=== PATIENT | male | born 1995 | race Caucasian/White ===

== ENCOUNTER 2017-02-01 17:58 | Emergency (ER) | payer SELFPAY ==
[~2017-02-01] VITALS: Ht 162.6 cm; Wt 63.5 kg
[2017-02-01] MEDS ORDERED: IV NORMAL SALINE 1000ML BAG 1,000 ML IV ONE (18:30)
[2017-02-01] MEDS ORDERED: KETOROLAC 30 MG/ML INJ. IV ONE (18:30)
[2017-02-01] MEDS ORDERED: ONDANSETRON PF 4 MG/2 ML VIAL. IV ONE (18:30)
[2017-02-01 18:44] LABS: BASO # 0.1 x10^3/uL (0.0-0.2); BASO % 1 % (0-3); EOS % 1 % (0-3); HEMATOCRIT 45.9 % (39.0-53.0); HEMOGLOBIN 15.1 g/dL (13.0-17.5); LYMPH # 2.2 x10^3/uL (1.0-4.8); LYMPH % 20 % (24-48); MEAN CORPUSCULAR HEMOGLOBIN 29 pg (25-35); MEAN CORPUSCULAR HGB CONC 33 g/dL (31-37); MEAN CORPUSCULAR VOLUME 89 fL (79-100); MONO % 7 % (0-9); NEUT % 72 % (31-73); PLATELET COUNT 230 x10^3/uL (140-400); RED BLOOD COUNT 5.16 x10^6/uL (4.30-5.70); RED CELL DISTRIBUTION WIDTH 13.2 % (11.5-14.5); WHITE BLOOD COUNT 11.5 x10^3/uL (4.0-11.0)
[2017-02-01] MEDS ORDERED: IOHEXOL 300 MG/ML 100ML VIAL. IV ONE (18:45)
[2017-02-01] MEDS ORDERED: CONTRAST GIVEN MC PRN (18:45)
[2017-02-01 18:52] LABS: CALCIUM 8.9 mg/dL (8.5-10.1); GFR 95.3; POTASSIUM 3.5 mmol/L (3.5-5.1)
[2017-02-01 18:58] LABS: ALBUMIN 3.8 g/dL (3.4-5.0); ALBUMIN/GLOBULIN RATIO 1.2 (1.0-1.7); TOTAL BILIRUBIN 0.3 mg/dL (0.2-1.0)
--- NOTE | 2017-02-01 19:25 | RAD ---
Ultrasound testicular 02/01/2017 CLINICAL INDICATION: Bilateral testicular pain. COMPARISON: None. FINDINGS: Right testis is high adjacent echotexture measuring 2.4 x 2.4 x 4.5 cm. There is normal intratesticular blood flow in the right testis. Right epididymis is unremarkable. There is a small left epididymal head cyst measuring 6 mm. Left testis measures 3.7 x 2.1 x 1.8 cm with homogeneous echotexture and normal intratesticular blood flow. IMPRESSION: 1. No evidence of testicular torsion or epididymoorchitis. 2. Small left epididymal head cysts, likely spermatocele. Electronically signed by: Douglas Solitario MD (02/01/2017 7:22 PM) [facility]
[2017-02-01 19:40] VITALS: BP 96/46
--- NOTE | 2017-02-01 19:42 | PHYS DOC ---
Past Medical History Past Medical History: No Pertinent History Past Surgical History: No Surgical History Alcohol Use: Occasionally Drug Use: Marijuana Social History Narrative: last use today Adult General Chief Complaint Chief Complaint: ABDOMINAL PAIN HPI HPI Patient is a 21 year old female presenting to the emergency department for evaluation of left or quadrant abdominal pain that rates towards testicle that started yesterday and has persistently gotten worse. He has had some nausea but no vomiting fevers chills diarrhea constipation dysuria or hematuria. Patient has not taken anything for pain and he is in no obvious distress with normal vital signs. Review of Systems Review of Systems Constitutional: Denies fever or chills [] Respiratory: Denies cough or shortness of breath [] Cardiovascular: No additional information not addressed in HPI [] GI: + abdominal pain, nausea. No vomiting, bloody stools or diarrhea [] : Denies dysuria or hematuria [] All other systems were reviewed and found to be within normal limits, except as documented in this note. Current Medications Current Medications Current Medications Medications (Trade) Dose Ordered Sig/[facility] Start Time Stop Time Status Last Admin Dose Admin Info (Do NOT chart on this entry -- for MONITORING) 1 each PRN DAILY PRN 02/01/17 18:45 02/03/17 18:44 Iohexol (Omnipaque 300 Mg/ml) 75 ml 1X ONCE 02/01/17 18:45 02/01/17 18:46 DC 02/01/17 18:45 75 ML Ketorolac Tromethamine (Toradol) 30 mg 1X ONCE 02/01/17 18:30 02/01/17 18:31 DC 02/01/17 18:54 30 MG Ondansetron HCl (Zofran) 8 mg 1X ONCE 02/01/17 18:30 02/01/17 18:31 DC 02/01/17 18:52 8 MG Sodium Chloride 1,000 ml @ 1,000 mls/hr 1X ONCE 02/01/17 18:30 02/01/17 19:29 DC 02/01/17 18:51 1,000 MLS/HR Allergies Allergies Allergies Coded Allergies Type Severity Reaction Last Updated Verified No Known Drug Allergies 12/21/15 No Physical Exam Physical Exam Constitutional: Well developed, well nourished, no acute distress, non-toxic appearance. [] Cardiovascular:Heart rate regular rhythm, no murmur [] Lungs & Thorax: Bilateral breath sounds clear to auscultation [] Abdomen: Bowel sounds normal, soft, no tenderness, no masses, no pulsatile masses. [] exam showed to normal testicles with no swelling. Current Patient Data Vital Signs Vital Signs Date Time Temp Pulse Resp B/P (MAP) Pulse Ox O2 Delivery O2 Flow Rate FiO2 02/01/17 18:10 98.3 97 16 123/61 (81) 99 Room Air 98.3 Lab Values Laboratory Tests Test 02/01/17 18:35 02/01/17 19:40 White Blood Count 11.5 x10^3/uL (4.0-11.0) H Red Blood Count 5.16 x10^6/uL (4.30-5.70) Hemoglobin 15.1 g/dL (13.0-17.5) Hematocrit 45.9 % (39.0-53.0) Mean Corpuscular Volume 89 fL (79-100) Mean Corpuscular Hemoglobin 29 pg (25-35) Mean Corpuscular Hemoglobin Concent 33 g/dL (31-37) Red Cell Distribution Width 13.2 % (11.5-14.5) Platelet Count 230 x10^3/uL (140-400) Neutrophils (%) (Auto) 72 % (31-73) Lymphocytes (%) (Auto) 20 % (24-48) L Monocytes (%) (Auto) 7 % (0-9) Eosinophils (%) (Auto) 1 % (0-3) Basophils (%) (Auto) 1 % (0-3) Neutrophils # (Auto) 8.3 x10^3uL (1.8-7.7) H Lymphocytes # (Auto) 2.2 x10^3/uL (1.0-4.8) Monocytes # (Auto) 0.8 x10^3/uL (0.0-1.1) Eosinophils # (Auto) 0.1 x10^3/uL (0.0-0.7) Basophils # (Auto) 0.1 x10^3/uL (0.0-0.2) Sodium Level 142 mmol/L (136-145) Potassium Level 3.5 mmol/L (3.5-5.1) Chloride Level 102 mmol/L (98-107) Carbon Dioxide Level 28 mmol/L (21-32) Anion Gap 12 (6-14) Blood Urea Nitrogen 13 mg/dL (8-26) Creatinine 1.0 mg/dL (0.7-1.3) Estimated GFR (Cockcroft-Gault) 95.3 BUN/Creatinine Ratio 13 (6-20) Glucose Level 133 mg/dL (70-99) H Calcium Level 8.9 mg/dL (8.5-10.1) Magnesium Level 2.0 mg/dL (1.8-2.4) Total Bilirubin 0.3 mg/dL (0.2-1.0) Aspartate Amino Transferase (AST) 15 U/L (15-37) Alanine Aminotransferase (ALT) 21 U/L (16-63) Alkaline Phosphatase 102 U/L (46-116) Total Protein 7.0 g/dL (6.4-8.2) Albumin 3.8 g/dL (3.4-5.0) Albumin/Globulin Ratio 1.2 (1.0-1.7) Lipase 87 U/L (73-393) Urine Color Yellow Urine Clarity Cloudy Urine pH 6.5 Urine Specific [place] 1.025 Urine Protein Negative mg/dL (NEG-TRACE) Urine Glucose (UA) Negative mg/dL (NEG) Urine Ketones (Stick) Negative mg/dL (NEG) Urine Blood Large (NEG) Urine Nitrite Negative (NEG) Urine Bilirubin Negative (NEG) Urine Urobilinogen Dipstick 1.0 mg/dL (0.2 mg/dL) Urine Leukocyte Esterase Negative (NEG) Urine RBC Tntc /HPF (0-2) Urine WBC Occ /HPF (0-4) Urine Squamous Epithelial Cells Occ /LPF Urine Bacteria 0 /HPF (0-FEW) Urine Mucus Slight /LPF Laboratory Tests 02/01/17 18:35 Laboratory Tests 02/01/17 18:35 EKG EKG [] Radiology/Procedures Radiology/Procedures Ultrasound testicular 02/01/2017 CLINICAL INDICATION: Bilateral testicular pain. COMPARISON: None. FINDINGS: Right testis is high adjacent echotexture measuring 2.4 x 2.4 x 4.5 cm. There is normal intratesticular blood flow in the right testis. Right epididymis is unremarkable. There is a small left epididymal head cyst measuring 6 mm. Left testis measures 3.7 x 2.1 x 1.8 cm with homogeneous echotexture and normal intratesticular blood flow. IMPRESSION: 1. No evidence of testicular torsion or epididymoorchitis. 2. Small left epididymal head cysts, likely spermatocele. Electronically signed by: Vinay Solitario MD (02/01/2017 7:22 PM) [facility] DICTATED and SIGNED BY: VINAY SOLITARIO MD DATE: 02/01/171919 CT abdomen and pelvis 02/01/2017 CLINICAL INDICATION: Low abdominal and scrotal pain. COMPARISON: None. TECHNIQUE: Multiple CT images of the abdomen and pelvis were obtained following the intravenous administration of 75 mL Omnipaque 300. *One or more of the following individualized dose reduction techniques were utilized for this examination: 1. Automated exposure control. 2. Adjustment of the mA and/or kV according to patient size. 3. Use of iterative reconstruction technique. FINDINGS: Heart size is normal. Visualized lung bases are clear. Liver, gallbladder, spleen, adrenal glands, pancreas are unremarkable. There is a solitary 4 mm nonobstructive calculus in the interpolar right kidney and a solitary 4 mm nonobstructing calculus in the inferior pole the left kidney. Abdominal aorta is normal in caliber. Major portal, splenic and visualized. Mesenteric veins are patent. No bowel obstruction. Appendix is not clearly identified due to lack of intraperitoneal fat, with no secondary findings of appendicitis. No pneumoperitoneum. No abdominal free fluid. Urinary bladder unremarkable. Prostate and seminal vesicles are present. No pelvic free fluid. There are no destructive osseous lesions. At L5-S1, central disc protrusion without significant spinal canal or neural foraminal narrowing. IMPRESSION: 1. Single bilateral 4 mm nonobstructive nephrolithiasis. 2. Otherwise, no acute abdominal or pelvic process. Electronically signed by: Vinay Solitario MD (02/01/2017 7:43 PM) [facility] DICTATED and SIGNED BY: VINAY SOLITARIO MD DATE: 02/01/171937 Course & Med Decision Making Course & Med Decision Making Patient says his pain went away all of a sudden and based off the large amount of blood in his urine he likely has a past kidney stone. Patient says he is feeling back to normal and wants to go home so he will be discharged in stable condition told to drink plenty of fluids take ibuprofen for pain and come back to the ED sooner with any worsening pain fevers vomiting or other general concerns. Patient aware and agreeable with plan and verbalized understanding of the above instructions. Dragon Disclaimer Dragon Disclaimer This electronic medical record was generated, in whole or in part, using a voice recognition dictation system. Departure Departure Impression: Primary Impression: Abdominal pain Additional Impression: Hematuria Disposition: 01 HOME, SELF-CARE Condition: STABLE Referrals: NO PCP (PCP) Patient Instructions: Abdominal Pain Problem Qualifiers Primary Impression: Abdominal pain Abdominal location: left lower quadrant Qualified Codes: R10.32 - Left lower quadrant pain MARTIN CASTELLANOS DO Feb 01, 2017 19:42
--- NOTE | 2017-02-01 19:47 | RAD ---
CT abdomen and pelvis 02/01/2017 CLINICAL INDICATION: Low abdominal and scrotal pain. COMPARISON: None. TECHNIQUE: Multiple CT images of the abdomen and pelvis were obtained following the intravenous administration of 75 mL Omnipaque 300. *One or more of the following individualized dose reduction techniques were utilized for this examination: 1. Automated exposure control. 2. Adjustment of the mA and/or kV according to patient size. 3. Use of iterative reconstruction technique. FINDINGS: Heart size is normal. Visualized lung bases are clear. Liver, gallbladder, spleen, adrenal glands, pancreas are unremarkable. There is a solitary 4 mm nonobstructive calculus in the interpolar right kidney and a solitary 4 mm nonobstructing calculus in the inferior pole the left kidney. Abdominal aorta is normal in caliber. Major portal, splenic and visualized. Mesenteric veins are patent. No bowel obstruction. Appendix is not clearly identified due to lack of intraperitoneal fat, with no secondary findings of appendicitis. No pneumoperitoneum. No abdominal free fluid. Urinary bladder unremarkable. Prostate and seminal vesicles are present. No pelvic free fluid. There are no destructive osseous lesions. At L5-S1, central disc protrusion without significant spinal canal or neural foraminal narrowing. IMPRESSION: 1. Single bilateral 4 mm nonobstructive nephrolithiasis. 2. Otherwise, no acute abdominal or pelvic process. Electronically signed by: Douglas Solitario MD (02/01/2017 7:43 PM) [facility]
[2017-02-01 19:48] LABS: BILIRUBIN,URINE NEGATIVE (NEG); GLUCOSE,URINE NEGATIVE (NEG); NITRITE,URINE NEGATIVE (NEG); PH,URINE 6.5; PROTEIN,URINE NEGATIVE (NEG-TRACE)
[2017-02-01 20:01] LABS: BACTERIA,URINE 0 /HPF (0-FEW); RBC,URINE TNTC /HPF (0-2); SQUAMOUS EPITHELIAL CELL,UR OCC /LPF; WBC,URINE OCC /HPF (0-4)
== END 2017-02-01 20:43 | disposition home or self-care (01) ==
LOC: ER 17:58
DX: R10.32 Left lower quadrant pain (principal); R31.9 Hematuria, unspecified; F12.10 Cannabis abuse, uncomplicated
CPT/HCPCS: 36415; 74177; 76870; 80053; 81001; 83690; 83735; 85025; 96361; 96374; 96375; 99285; J1885; J2405; J7030; Q9967

== ENCOUNTER 2019-02-21 13:40 | Emergency (ER) | payer SELFPAY ==
[~2019-02-21] VITALS: Ht 165.1 cm; Wt 63.5 kg
[2019-02-21 15:03] VITALS: BP 123/56
--- NOTE | 2019-02-21 15:26 | PHYS DOC ---
Past Medical History Past Medical History: No Pertinent History Past Surgical History: No Surgical History Alcohol Use: Occasionally Drug Use: Marijuana Adult General Chief Complaint Chief Complaint: COUGH HPI HPI Patient is a 23 year old [male] who presents with [general malaise, cough, sore throat for the past 3-4 days. Reports several others in the household has been ill with similar, reports his significant other had been ill before he was, with similar symptoms. Reports he continued to have a sore scratchy throat, has had some ywju-fcc-[id number] medications which seemed to help briefly but he continues to feel ill. Reports occasional headache.] Review of Systems Review of Systems Constitutional: Reports chills and has not taken his temperature[] Eyes: Denies change in visual acuity, redness, or eye pain [] HENT: Denies nasal congestion complains of sore throat[] Respiratory: Reports cough and occasional shortness of breath [] Cardiovascular: No additional information not addressed in HPI [] GI: Denies abdominal pain, nausea, vomiting, bloody stools or diarrhea [] : Denies dysuria or hematuria [] Musculoskeletal: Denies back pain or joint pain [] Integument: Denies rash or skin lesions [] Neurologic: Denies headache, focal weakness or sensory changes [] Endocrine: Denies polyuria or polydipsia [] All other systems were reviewed and found to be within normal limits, except as documented in this note. Current Medications Current Medications Current Medications Medications (Trade) Dose Ordered Sig/[facility] Start Time Stop Time Status Last Admin Dose Admin Albuterol/ Ipratropium (Duoneb) 3 ml 1X ONCE 02/21/19 15:30 02/21/19 15:31 DC 02/21/19 15:31 3 ML Allergies Allergies Allergies Coded Allergies Type Severity Reaction Last Updated Verified No Known Drug Allergies 12/21/15 No Physical Exam Physical Exam Constitutional: Well developed, well nourished, no acute distress, non-toxic ap pearance. [] HENT: Normocephalic, atraumatic, bilateral external ears normal, oropharynx moist, no oral exudates, nose normal. [] Eyes: PERRLA, EOMI, conjunctiva normal, no discharge. [] Neck: Normal range of motion, no tenderness, supple, no stridor. [] Cardiovascular:Heart rate regular rhythm, no murmur [] Lungs & Thorax: Was noted to all extremities, no noted shortness of breath, conversational[] Abdomen: Bowel sounds normal, soft, no tenderness, no masses, no pulsatile masses. [] Skin: Warm, dry, no erythema, no rash. [] Back: No tenderness, no CVA tenderness. [] Extremities: No tenderness, no cyanosis, no clubbing, ROM intact, no edema. [] Neurologic: Alert and oriented X 3, normal motor function, normal sensory function, no focal deficits noted. [] Psychologic: Affect normal, judgement normal, mood normal. [] Current Patient Data Vital Signs Vital Signs Date Time Temp Pulse Resp B/P (MAP) Pulse Ox O2 Delivery O2 Flow Rate FiO2 02/21/19 15:32 98 Room Air 02/21/19 15:03 98.5 67 18 123/56 (78) 98.5 Lab Values Laboratory Tests Test 02/21/19 15:40 Influenza Type A Antigen Negative (NEGATIVE) Influenza Type B Antigen Negative (NEGATIVE) EKG EKG [] Radiology/Procedures Radiology/Procedures [] Course & Med Decision Making Course & Med Decision Making Pertinent Labs and Imaging studies reviewed. (See chart for details) [Following breathing treatment, reports he feels a lot better. Noted decreased wheezing. Reminded patient importance of smoking cessation to help limit further lung damage causing wheezing. We'll provide rx for cough medications, will provide patient with note to return tomorrow.] Dragon Disclaimer Dragon Disclaimer This electronic medical record was generated, in whole or in part, using a voice recognition dictation system. Departure Departure Impression: Primary Impression: Nasopharyngitis acute Disposition: 01 HOME, SELF-CARE Condition: GOOD Referrals: NO PCP (PCP) Patient Instructions: Upper Respiratory Infection, Adult, [id number] Additional Instructions: As we discussed, try to decrease your smoking which will hopefully decrease inflammation in the lungs and help with her cough and shortness of breath. Take the cough medication as prescribed. Try to rest. Return to work tomorrow if you are feeling better, but he continued to feel that he may follow up with your primary care provider. Scripts Promethazine/Dextromethorphan (Promethazine-Dm Syrup) 473 Ml Syrup 5 ML PO PRN Q4HRS PRN for cough for 4 Days, #120 ML 0 Refills Prov: DILAN DOZIER APRN 02/21/19 DILAN DOZIER APRN Feb 21, 2019 15:26
[2019-02-21] MEDS ORDERED: IPRATRPIUM/ALBUTEROL 0.5/2.5MG 3 ML NEBU. NEB ONE (15:30)
[2019-02-21 15:58] LABS: INFLUENZA A PATIENT NEGATIVE (NEGATIVE); INFLUENZA B PATIENT NEGATIVE (NEGATIVE)
[2019-02-21] MEDS ORDERED: D-ME473S14 PO (16:34)
== END 2019-02-21 16:43 | disposition home or self-care (01) ==
LOC: ER 13:40
DX: J00 Acute nasopharyngitis [common cold] (principal); R05 Cough; F12.90 Cannabis use, unspecified, uncomplicated
CPT/HCPCS: 87804; 94640; 99284; J7620

== ENCOUNTER 2019-08-09 18:21 | Emergency (ER) | payer SELFPAY ==
[~2019-08-09] VITALS: Ht 165.1 cm; Wt 65.9 kg
[~2019-08-09 18:21] MED LIST: D-ME473S14 PO
[2019-08-09 18:40] VITALS: BP 136/83
[2019-08-09] MEDS ORDERED: PRED20TA PO (18:54)
--- NOTE | 2019-08-09 18:55 | PHYS DOC ---
Past Medical History Past Medical History: No Pertinent History Past Surgical History: No Surgical History Smoking Status: Current Every Day Smoker Alcohol Use: Occasionally Drug Use: Marijuana General Adult EDM: Chief Complaint: MULTIPLE COMPLAINTS HPI: HPI: Patient is a 23 year old male who presents to the emergency department with complaints of a rash that is itchy all over his body for last 2 weeks. Patient states that he had gotten into some poison kala and that the rash continues to spread. Patient also reports that he works at [employer] and yesterday he felt something pull in his suprapubic region when he was lifting heavy piece of furniture. He denies any saddle anesthesia or loss of bowel or bladder control. Patient denies any back pain, abdominal bulging, hematuria, dysuria, increased urinary frequency, or difficulty voiding. He also denies any fever, cough, shortness of breath, wheezing, nausea, vomiting, diarrhea, or back pain. He currently rates his discomfort a 4 out of 10 on the pain scale, he denies any alleviating factors, the pain is worse with bending and moving. Review of Systems: Review of Systems: Constitutional: Denies fever or chills. [] Eyes: Denies change in visual acuity. [] HENT: Denies nasal congestion or sore throat. [] Respiratory: Denies cough or shortness of breath. [] Cardiovascular: Denies chest pain or edema. [] GI: Denies nausea, vomiting, bloody stools or diarrhea; see HPI. [] : Denies dysuria. [] Musculoskeletal: Denies back pain or joint pain. [] Integument: See HPI Neurologic: Denies headache, focal weakness or sensory changes. [] Endocrine: Denies polyuria or polydipsia. [] Lymphatic: Denies swollen glands. [] Psychiatric: Denies depression or anxiety. [] Heart Score: Risk Factors: Risk Factors: DM, Current or recent (<one month) smoker, HTN, HLP, family hist ory of CAD, obesity. Risk Scores: Score 0 - 3: 2.5% MACE over next 6 weeks - Discharge Home Score 4 - 6: 20.3% MACE over next 6 weeks - Admit for Clinical Observation Score 7 - 10: 72.7% MACE over next 6 weeks - Early Invasive Strategies Allergies: Allergies: Allergies Coded Allergies Type Severity Reaction Last Updated Verified No Known Drug Allergies 12/21/15 No Physical Exam: PE: constitutional: Well developed, well nourished, no acute distress, non-toxic appearance. [] HENT: Normocephalic, atraumatic, bilateral external ears normal, nose normal. [] Eyes: PERRLA, EOMI, conjunctiva normal, no discharge. [] Neck: Normal range of motion, no stridor. [] Cardiovascular:Heart rate regular rhythm Lungs & Thorax: Respirations even and unlabored, no retractions, no respiratory distress Abdomen: soft, no tenderness, no palpable masses, no visible hernia Skin: Warm, dry; erythemic patchy, rash consistent with poison kala dermatitis over bilateral upper extremities, chest, torso, and back. Extremities: No cyanosis, ROM intact, no edema. [] Neurologic: Alert and oriented X 3, no focal deficits noted. [] Psychologic: Affect normal, judgement normal, mood normal. [] EKG: EKG: [] Radiology/Procedures: Radiology/Procedures: [] Course & Med Decision Making: Course & Med Decision Making Pertinent Labs and Imaging studies reviewed. (See chart for details) [] Dragon Disclaimer: DragFandeavor Disclaimer: This electronic medical record was generated, in whole or in part, using a voice recognition dictation system. Departure Departure Impression: Primary Impression: Strain of abdominal muscle Qualified Codes: S39.011A - Strain of muscle, fascia and tendon of abdomen, initial encounter Additional Impression: Poison kala dermatitis Disposition: 01 HOME, SELF-CARE Condition: STABLE Referrals: NO PCP (PCP) Patient Instructions: Muscle Strain, Uflm-[id number], Poison Kala, Donj-os-Hlda Additional Instructions: Fill prescription(s) and use as directed. Activity as tolerated. Recommend [id number]-[id number] Benadryl and wfzl-shy-xucmkmf Benadryl itch relief cream or calamine lotion for relief of itching. May also apply a mixture of 50% water 50% vinegar to affected areas to help dry rash up. Follow up with your primary care doctor if symptoms worsen or persist. Scripts Prednisone (PREDNISONE) 20 Mg Tablet 1 TAB PO UD for 12 Days, #15 TAB 2 tabs by mouth days 1,2,3 then 1.5 tabs by mouth days 4,5,6 then 1 tab by mouth days 7,8,9 then 0.5 tab by mouth day ,,12 Prov: ENRICO MARTIN BOTTOM STAINER 08/09/19 Justicifation of Admission Dx: Justifications for Admission: Justification of Admission Dx: N/A ENRICO MARTIN BOTTOM STAINER Aug 09, 2019 18:55
[2019-08-09] MEDS ORDERED: DEXAMETHASONE SOD PHOS 20 MG/5 ML VIAL. IM ONE (19:00)
== END 2019-08-09 19:25 | disposition home or self-care (01) ==
LOC: ER 18:21
DX: S39.011A Strain of muscle, fascia and tendon of abdomen, initial encounter (principal); L23.7 Allergic contact dermatitis due to plants, except food; R21 Rash and other nonspecific skin eruption; F17.200 Nicotine dependence, unspecified, uncomplicated; F12.90 Cannabis use, unspecified, uncomplicated; X50.0XXA Overexertion from strenuous movement or load, initial encounter; Y93.89 Activity, other specified; Y92.89 Other specified places as the place of occurrence of the external cause; Y99.8 Other external cause status
CPT/HCPCS: 96372; 99283; J1100

== ENCOUNTER 2021-01-31 20:52 | Emergency (ER) | payer SELFPAY ==
[~2021-01-31] VITALS: Ht 165.1 cm; Wt 68.0 kg
[~2021-01-31 20:52] MED LIST changes: +PRED20TA PO
[2021-01-31 21:01] VITALS: BP 106/75
--- NOTE | 2021-01-31 21:27 | PHYS DOC ---
Past Medical History Past Medical History: No Pertinent History Past Surgical History: No Surgical History Smoking Status: Current Every Day Smoker Alcohol Use: Occasionally Drug Use: Marijuana General Adult EDM: Chief Complaint: TOE PROBLEM HPI: HPI: Patient is a 25 year old male with no significant medical history presenting today complaining of moderate pain to the left great toe after he accidentally dropped a 60 pound box on his left foot. Patient states he had his "Jordans" shoes on. Patient states most of the pain is on touching the great toe. States elevation of the foot helps Review of Systems: Review of Systems: Constitutional: Denies fever or chills. [] Musculoskeletal: Reports left great toe pain Integument: Denies rash. [] Neurologic: Denies headache, focal weakness or sensory changes. [] [] Psychiatric: Denies depression or anxiety. [] Heart Score: C/O Chest Pain: N/A Risk Factors: Risk Factors: DM, Current or recent (<one month) smoker, HTN, HLP, family history of CAD, obesity. Risk Scores: Score 0 - 3: 2.5% MACE over next 6 weeks - Discharge Home Score 4 - 6: 20.3% MACE over next 6 weeks - Admit for Clinical Observation Score 7 - 10: 72.7% MACE over next 6 weeks - Early Invasive Strategies Allergies: Allergies: Allergies Coded Allergies Type Severity Reaction Last Updated Verified No Known Drug Allergies 12/21/15 No Physical Exam: PE: Constitutional: Well developed, well nourished, no acute distress, non-toxic appearance. [] Skin: Warm, dry, no erythema, no rash. [] Back: No tenderness, no CVA tenderness. [] Extremities: Left foot with no obvious deformity. Left great toe with slight erythema on top of the toe. Full range of motion to the left foot and toes. No navicular bone tenderness, no tenderness of the base of the fifth metatarsal of the left foot. +2 left pedal pulse. Cap refill less than 2 seconds to left toes. Sensation intact to the left toes. Neurologic: Alert and oriented X 3, normal motor function, normal sensory function, no focal deficits noted. [] Psychologic: Affect normal, judgement normal, mood normal. [] Current Patient Data: Vital Signs: Vital Signs Date Time Temp Pulse Resp B/P (MAP) Pulse Ox O2 Delivery O2 Flow Rate FiO2 12/6/21 21:01 98.1 86 18 106/75 (85) 97 98.1 EKG: EKG: [] Radiology/Procedures: Radiology/Procedures: []PROCEDURE: FOOT LEFT 3V Study: XR FOOT_LEFT 3 VIEWS Indication: Pain. Injury. Comparison: None. Findings: No acute fracture. Alignment is within normal limits. Maintained joint spaces. No retained radiopaque foreign body within soft tissues. Impression: No displaced fracture or malalignment. Electronically signed by: RODNEY MALAVE MD (01/31/2021 11:13 PM) [facility] DICTATED and SIGNED BY: RODNEY MALAVE MD DATE: 01/31/21 [id number] 0 Course & Med Decision Making: Course & Med Decision Making Pertinent Labs and Imaging studies reviewed. (See chart for details) This a 25-year-old male patient presented to the ED today with left great toe pain that began after a 60 pound box fell on the toe today. Left foot x-rays interpreted by radiologist were negative for any acute findings. Ortho shoe provided to the left foot by the dental technician apprentice, neurovascular exam done by the tech is negative. Ice elevation encouraged. Follow-up with orthopedic doctor in 1 week Ella Disclaimer: Dragtuyet Disclaimer: This electronic medical record was generated, in whole or in part, using a voice recognition dictation system. Departure Departure Impression: Primary Impression: Contusion of left foot Qualified Codes: S90.32XA - Contusion of left foot, initial encounter Disposition: HOME / SELF CARE / HOMELESS Condition: STABLE Referrals: NO PCP (PCP) ELSA BAILEY II, MD followup in one week Patient Instructions: Contusion, [id number] Additional Instructions: You were seen for left great toe contusion. Your left foot x-rays are negative for any acute findings. We encourage you to ice and elevate the extremity. Follow-up with the provided orthopedic doctor in 1 week if symptoms persist Scripts Naproxen (NAPROXEN) 500 Mg Tablet 1 TAB PO BID for pain, #14 TAB 0 Refills Prov: WILLI NGUYEN Cassandra FIBER MACHINE TENDER 01/31/21 WILLI NGUYEN Cassandra FIBER MACHINE TENDER Jan 31, 2021 21:27
--- NOTE | 2021-01-31 23:15 | RAD ---
Study: XR FOOT_LEFT 3 VIEWS Indication: Pain. Injury. Comparison: None. Findings: No acute fracture. Alignment is within normal limits. Maintained joint spaces. No retained radiopaque foreign body within soft tissues. Impression: No displaced fracture or malalignment. Electronically signed by: RODNEY MALAVE MD (01/31/2021 11:13 PM) [facility]
[2021-01-31] MEDS ORDERED: NAPR-514 PO (23:27)
[2021-01-31] MEDS ORDERED: HYDROcodone/APAP 5/325MG 1 TAB TABLET PO ONE (23:30)
== END 2021-01-31 23:45 | disposition home or self-care (01) ==
LOC: ER 20:52
DX: S90.32XA Contusion of left foot, initial encounter (principal); F17.200 Nicotine dependence, unspecified, uncomplicated; W22.8XXA Striking against or struck by other objects, initial encounter; Y93.89 Activity, other specified; Y92.89 Other specified places as the place of occurrence of the external cause; Y99.8 Other external cause status
CPT/HCPCS: 73630; 99283